=== PATIENT | female | born 1985 | race Caucasian/White ===

== ENCOUNTER 2021-12-28 04:58 | Emergency (ER) | payer MEDICAID, SELFPAY ==
--- NOTE | 2021-12-28 05:06 | ED.SKABFB ---
HPI - Skin/Abscess/Foreign Bdy General Chief complaint: Skin/Abscess/Foreign Body Stated complaint: infected abscess? Time Seen by Provider: 12/28/21 05:06 Source: patient Mode of arrival: ambulatory Limitations: no limitations History of Present Illness HPI narrative: Patient with abscess to right bicep. 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 Abscess was I&D and admitted for abx for 1 weeks. Patient is an active IVDU complaint: abscess/boil Onset (ago): week(s) Tetanus up to date: yes Severity: moderate Pain Consistency: constant Relieving factors: none Exacerbating factors: none Context: none Associated symptoms: denies other symptoms Treatments prior to arrival: none Related Data Previous Rx's Medication Instructions Recorded amoxicillin 875 mg-potassium 1 tab PO BID #20 tabs 12/28/21 clavulanate 125 mg tablet Allergies Allergy/AdvReac Type Severity Reaction Status Date / Time codeine Allergy Hives Verified 12/28/21 05:10 Review of Systems Constitutional: Constitutional: Reports no additional constitutional complaints Eyes: Eyes: Reports no additional eye complaints ENT: Denies dizziness Cardiovascular: Cardiovascular: Reports no additional cardiovascular complaints Respiratory: Respiratory: Reports as per HPI Gastrointestinal: Gastrointestinal: Reports no additional gastrointestinal complaints Genitourinary: Genitourinary: Reports no additional female genitourinary complaints Musculoskeletal: Musculoskeletal: Reports no additional musculoskeletal complaints Integumentary/Breasts: Skin/Breast: Denies rash Neurologic: Reports system reviewed and no additional complaints, except as documented, Denies dizziness and Denies Sensory deficit (Neuro) Psychiatric: Psychiatric: Denies anxiety Physical Exam Vital Signs: Vital Signs: Last Vital Signs Temp 98.0 F 12/28/21 05:10 Pulse 53 12/28/21 05:21 Resp 16 12/28/21 05:21 BP 113/85 12/28/21 05:10 Pulse Ox 99 12/28/21 05:21 O2 Del Method 12/28/21 05:21 BMI result Body Mass Index 19.1 Const: Other: cachectic unkept Orientation/consciousness: oriented to person and patient oriented x3 Limitations: no limitations HEENT: Head: Yes normal to inspection Ears: external ears normal General nose exam: Normal external nose present Mouth: Normal oral and palatal mucosa present and oropharynx normal Throat: Yes posterior oropharynx normal Eyes: General: appearance normal, both eyes and all related structures Neck: Other: supple Neck: Yes normal visual inspection Chest: Chest palpation & inspection: normal inspection of the chest Resp: Auscultation: clear to auscultation bilaterally Cardio: Jugular venous distension: no JVD Rate: regular rate Rhythm: regular rhythm Heart sounds: S1 normal heart sound present and S2 normal heart sound present GI: Inspection: Yes normal to inspection Palpation (GI): Soft to palpation, nontender and No hepatosplenomegaly present Auscultation: normal bowel sounds : General: Yes no CVA tenderness Back/Spine/Pelvis: Back: no CVA tenderness Skin: Other: right bicep area with opened lesion with wound dehiscence, no fluctuance, no drainage Neuro: General: oriented to person and patient oriented x3 Cranial nerves: Yes CN's II-XII intact bilaterally Motor exam (neuro): 5/5 motor strength present throughout Sensory Exam: No Sensory deficit (Neuro) Extrem: General: Yes normal to inspection Psych: Appearance: grossly normal Course Reevaluation(s) Reevaluation #1: Bedside ultrasound reveals no fluid collection, will start augmentin, clean and dress wound Time: 05:18 Discharge Plan Discharge Clinical Impression: Cellulitis, Abscess of skin or subcutaneous tissue Patient Disposition: Home, Self-Care Instructions: Cellulitis (ED), Abscess (ED) Prescriptions: New amoxicillin-pot clavulanate 875-125 mg tablet 1 tab PO BID Qty: 20 0RF Referrals: Physician,Nonstaff [Primary Care Provider] - 5 days
[2021-12-28 05:10] VITALS: BP 113/85; PULSE 65; RESP 18; TEMP 36.7; O2SAT 99; BMI 19.1
[2021-12-28 05:21] VITALS: PULSE 53; RESP 16; O2SAT 99
--- NOTE | 2021-12-28 05:42 | PC.NURSE ---
rt arm wound cleansed with NS, bacitracin applied, nonadherant dressing, wrapped in DPD. pt given crackers per request
[2021-12-28] MEDS: Amoxicillin/Potassium Clav 875 MG TABLET PO (05:53)
[2021-12-28 05:54] VITALS: PULSE 67; RESP 16; O2SAT 99
== END 2021-12-28 06:08 | disposition home or self-care (01) ==
LOC: HO.ED 06:05
PROVIDERS: Emergency Provider Emergency Medicine
DX: L03.113 Cellulitis of right upper limb (principal); L02.413 Cutaneous abscess of right upper limb; F19.90 Other psychoactive substance use, unspecified, uncomplicated
CPT/HCPCS: 99283; 99284